=== PATIENT | female | born 1995 | race Caucasian/White ===

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

== ENCOUNTER 2019-02-16 17:56 | Emergency (ER) | payer OTHER ==
[2019-02-16 18:25] VITALS: BP 122/65
--- NOTE | 2019-02-16 18:36 | EDM.PDOC ---
ED HPI GENERAL MEDICAL PROBLEM - General Stated Complaint: UTI Time Seen by Provider: 02/16/19 18:18 Source of Information: Reports: Patient History Limitations: Reports: No Limitations - History of Present Illness INITIAL COMMENTS - FREE TEXT/NARRATIVE: 23-year-old female with onset of urgency, frequency and dysuria at approximately 5 PM today. She had no symptoms prior to this. Some mild suprapubic discomfort there is no back or flank pain. She's had no fevers or chills. There's been no nausea or vomiting. She has been able to eat and drink normally. She has noticed no blood in her urine. She rates pain as a 5/10. It is a burning and stinging pain that occurs after urination. The pain in her suprapubic area is more of a pressure type feeling. There are no other associated signs or symptoms. There are no other modifying factors. Onset: Today (5 PM) Duration: Constant Location: Reports: Abdomen (Mild suprapubic discomfort), Other (/urethra) Quality: Reports: Pressure (And suprapubic area), Other (Burning with urination) Severity: Moderate Improves with: Reports: None Worsens with: Reports: Other (With urination) Context: Reports: Other (As above) Associated Symptoms: Reports: No Other Symptoms Treatments [employer]: Reports: Other (see below) (Nothing) Abdominal Pain Score (Numeric/FACES): 4 - Related Data Allergies Allergy/AdvReac Type Severity Reaction Status Date / Time No Known Allergies Allergy Verified 10/11/16 02:05 Home Meds: Home Meds ALPRAZolam [Alprazolam] 0.25 mg PO Q4HR PRN 10/11/16 [History] Sertraline HCl 200 mg PO DAILY 10/11/16 [History] busPIRone [Buspar] 100 mg PO TID 10/11/16 [History] Phenazopyridine HCl [Pyridium] 200 mg PO TID PRN #9 tablet 02/16/19 [Rx] Prazosin [Minpress] 1 mg PO BEDTIME 02/16/19 [History] Sulfamethoxazole/Trimethoprim [Bactrim Ds Tablet] 1 each PO BID 7 Days #14 tablet 02/16/19 [Rx] Past Medical History Psychiatric History: Reports: Anxiety, Depression - Past Surgical History Musculoskeletal Surgical History: Reports: ORIF (Of right ankle with 2 surgeries.) Social & Family History - Tobacco Use Smoking Status *Q: Current Every Day Smoker - Caffeine Use Caffeine Use: Reports: None - Alcohol Use Alcohol Use History: Yes Alcohol Use Frequency: Socially - Living Situation & Occupation 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) ED ROS GENERAL - Review of Systems Review Of Systems: See Below Constitutional: Reports: No Symptoms HEENT: Reports: No Symptoms Respiratory: Reports: No Symptoms Cardiovascular: Reports: No Symptoms Endocrine: Reports: No Symptoms GI/Abdominal: Reports: Abdominal Pain (Mild suprapubic discomfort) : Reports: Dysuria, Urgency Musculoskeletal: Reports: No Symptoms Skin: Reports: No Symptoms Neurological: Reports: No Symptoms Hematologic/Lymphatic: Reports: No Symptoms Immunologic: Reports: No Symptoms ED EXAM, RENAL/ - Physical Exam Exam: See Below Exam Limited By: No Limitations General Appearance: Alert, WD/WN, No Apparent Distress Eye Exam: Bilateral Eye: EOMI, Normal Inspection Ears: Normal External Exam Nose: Normal Inspection, Normal Mucosa Throat/Mouth: Normal Inspection, Normal Oropharynx, Normal Voice, No Airway Compromise Head: Atraumatic, Normocephalic Neck: Normal Inspection, Supple, Non-Tender, Full Range of Motion Respiratory/Chest: No Respiratory Distress, Lungs Clear, Normal Breath Sounds, No Accessory Muscle Use, Chest Non-Tender Cardiovascular: Normal Peripheral Pulses, Regular Rate, Rhythm, No JVD GI/Abdominal: Normal Bowel Sounds, Soft, No Mass, Tender (Mildly tender in suprapubic area) Back Exam: Normal Inspection. No: CVA Tenderness (R), CVA Tenderness (L) Extremities: Normal Inspection, Normal Range of Motion, Non-Tender, Normal Capillary Refill, No Pedal Edema Neurological: Alert, Oriented, CN II-XII Intact, Normal Cognition, No Motor/ Sensory Deficits Psychiatric: Normal Affect Skin Exam: Warm, Dry, Intact, Normal Color, No Rash Lymphatic: No Adenopathy Course - Vital Signs Last Recorded V/S: Last Vital Signs Temp 37.1 C 02/16/19 18:10 Pulse 65 02/16/19 18:10 Resp 18 02/16/19 18:10 BP 122/65 02/16/19 18:10 Pulse Ox 98 02/16/19 18:10 - Orders/Labs/Meds Orders: Active Orders 24 hr Category Date Time Status CULTURE URINE [RM] Stat Lab 02/16/19 18:26 Ordered Labs: Laboratory Tests 02/16/19 02/16/19 Range/Units 18:05 18:05 Urine Color Yellow (YELLOW) Urine Appearance Cloudy (CLEAR) Urine pH 8.0 H (5.0-6.5) Ur Specific [place] 1.010 (1.010-1.025) Urine Protein Negative (NEGATIVE) mg/dL Urine Glucose (UA) Normal (NORMAL) mg/dL Urine Ketones Negative (NEGATIVE) mg/dL Urine Occult Blood Large H (NEGATIVE) Urine Nitrite Negative (NEGATIVE) Urine Bilirubin Negative (NEGATIVE) Urine Urobilinogen Normal (NEGATIVE) mg/dL Ur Leukocyte Esterase Large H (NEGATIVE) Urine RBC 5-10 H (0-5) Urine WBC 75-100 H (0-5) Ur Squamous Epith Cells Moderate H (NS,R,O) Urine Bacteria Moderate H (NS) Urine HCG, Qual Negative (NEGATIVE) - Re-Assessments/Exams Free Text/Narrative Re-Assessment/Exam: 02/16/19 18:38: Patient with urinary tract infection. Urine was sent for culture. test was negative. The patient will be placed on Bactrim DS 1 by mouth twice a day for 7 days and Pyridium 200 mg by mouth 3 times a day when necessary area Departure - Departure Time of Disposition: 18:45 Disposition: Home, Self-Care 01 Condition: Good Clinical Impression: UTI (urinary tract infection) Qualifiers: Urinary tract infection type: site unspecified Hematuria presence: without hematuria Qualified Code(s): N39.0 - Urinary tract infection, site not specified - Discharge Information Prescriptions: Phenazopyridine HCl [Pyridium] 200 mg PO TID PRN #9 tablet PRN Reason: Urinary discomfort Sulfamethoxazole/Trimethoprim [Bactrim Ds Tablet] 1 each PO BID 7 Days #14 tablet Instructions: Urinary Tract Infection, Adult, [id number] Referrals: Crystal Purcell NP [Primary Care Provider] - Additional Instructions: You have a urinary tract infection. Increase your fluid intake. Rest. Medication as prescribed (Bactrim DS, Pyridium 200 mg). Follow-up with your primary doctor as needed. Back to the emergency department for unrelenting vomiting, high fever, worsening abdominal, back or flank pain or any other concerning sign or symptom. - My Orders Last 24 Hours: My Active Orders 02/16/19 18:26 CULTURE URINE [RM] Stat - Assessment/Plan Last 24 Hours: My Active Orders 02/16/19 18:26 CULTURE URINE [RM] Stat
[2019-02-16] MEDS ORDERED: Sulfamethoxazole/Trimethoprim 800-160 MG Tab PO ONE (18:43)
[2019-02-16] MEDS ORDERED: Phenazopyridine 95 MG Tab PO ONE (18:44)
== END 2019-02-16 19:04 | disposition home or self-care (01) ==
LOC: FB.ED 17:56
DX: N39.0 Urinary tract infection, site not specified (principal); F41.9 Anxiety disorder, unspecified; F32.9 Major depressive disorder, single episode, unspecified; F17.200 Nicotine dependence, unspecified, uncomplicated; Z79.899 Other long term (current) drug therapy
CPT/HCPCS: 81001; 81025; 87086; 87088; 87186; 99284; A9270

== ENCOUNTER 2020-05-12 20:34 | Emergency (ER) | payer OTHER ==
[2020-05-12] MEDS ORDERED: Ketorolac 60 MG/2 ML SDV IM STA (21:58)
--- NOTE | 2020-05-12 22:03 | EDM.PDOC ---
ED HPI GENERAL MEDICAL PROBLEM - General Stated Complaint: KNEE Time Seen by Provider: 05/12/20 20:40 Source of Information: Reports: Patient History Limitations: Reports: No Limitations - History of Present Illness INITIAL COMMENTS - FREE TEXT/NARRATIVE: Patient presented to the ED because of a chronic left knee pain. The pain is sharp,10/10, worse with movement. She took Ibuprofen and tylenol without any relief. She saw an orthopedic surgeon and was diagnosed with torn meniscus. 0 Pain Score (Numeric/FACES): 10 - Related Data Allergies Allergy/AdvReac Type Severity Reaction Status Date / Time No Known Allergies Allergy Verified 10/11/16 02:05 Home Meds: Home Meds ALPRAZolam [Alprazolam] 0.25 mg PO Q4HR PRN 10/11/16 [History] Sertraline HCl 200 mg PO DAILY 10/11/16 [History] busPIRone [Buspar] 100 mg PO TID 10/11/16 [History] Phenazopyridine HCl [Pyridium] 200 mg PO TID PRN #9 tablet 02/16/19 [Rx] Prazosin [Minpress] 1 mg PO BEDTIME 02/16/19 [History] Sulfamethoxazole/Trimethoprim [Bactrim Ds Tablet] 1 each PO BID 7 Days #14 tablet 02/16/19 [Rx] Ketorolac [Toradol] 10 mg PO Q8H PRN #15 tab 05/12/20 [Rx] Past Medical History Psychiatric History: Reports: Anxiety, Depression - Past Surgical History Musculoskeletal Surgical History: Reports: ORIF (Of right ankle with 2 surgeries.) Social & Family History - Family History Family Medical History: Noncontributory - Caffeine Use Caffeine Use: Reports: Soda - Living Situation & Occupation 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) ED ROS GENERAL - Review of Systems Review Of Systems: See Below Constitutional: Reports: No Symptoms HEENT: Reports: No Symptoms Respiratory: Reports: No Symptoms Cardiovascular: Reports: No Symptoms Endocrine: Reports: No Symptoms GI/Abdominal: Reports: No Symptoms : Reports: No Symptoms Musculoskeletal: Reports: Other (left lnee pain) Skin: Reports: No Symptoms Neurological: Reports: No Symptoms Psychiatric: Reports: No Symptoms Hematologic/Lymphatic: Reports: No Symptoms ED EXAM, GENERAL - Physical Exam Exam: See Below Exam Limited By: No Limitations General Appearance: Alert, No Apparent Distress Eye Exam: Bilateral Eye: PERRL Ears: Normal External Exam, Normal Canal, Hearing Grossly Normal Nose: Normal Inspection, Normal Mucosa, No Blood Throat/Mouth: Normal Inspection, Normal Lips, Normal Teeth Head: Atraumatic, Normocephalic Neck: Normal Inspection, Supple, Non-Tender, Full Range of Motion Respiratory/Chest: No Respiratory Distress, Lungs Clear, Normal Breath Sounds, No Accessory Muscle Use Cardiovascular: Normal Peripheral Pulses, Regular Rate, Rhythm, No Edema, No Gal lop, No JVD, No Murmur, No Rub GI/Abdominal: Normal Bowel Sounds, Soft, Non-Tender, No Organomegaly Back Exam: Normal Inspection, Full Range of Motion Extremities: Normal Inspection, Normal Range of Motion, Other (tendernes over the medial and lateral aspect of the left knee) Course - Vital Signs Text/Narrative:: toradol 60 mg IM x1 Last Recorded V/S: Last Vital Signs Temp 36.4 C 05/12/20 22:00 Pulse 95 05/12/20 22:00 Resp 17 05/12/20 22:00 BP 139/73 05/12/20 22:00 Pulse Ox 99 05/12/20 22:00 - Orders/Labs/Meds Meds: Medications Discontinued Medications Generic Name Dose Route Start Last Admin Trade Name Freq PRN Reason Stop Dose Admin Ketorolac Tromethamine 60 mg 05/12/20 21:58 05/12/20 22:10 Toradol IM 05/12/20 21:59 60 mg NOW STA Administration Departure - Departure Time of Disposition: 20:00 Disposition: Home, Self-Care 01 Condition: Good Clinical Impression: Chronic knee pain - Discharge Information Prescriptions: Ketorolac [Toradol] 10 mg PO Q8H PRN #15 tab PRN Reason: Pain Instructions: Chronic Knee Pain, Adult Referrals: Daisy Pacheco PA-C [Primary Care Provider] - Forms: ED Department Discharge Additional Instructions: Please tread discharge instructions on chronic knee pain Take toradol 10 mg with tylenol 1000 mg every 8 hours as needed for pain Do not take Ibuprofen when you are taking the toradol Follow up as needed Sepsis Event Note (ED) - Focused Exam Vital Signs: Vital Signs Temp Pulse Resp BP Pulse Ox 05/12/20 22:00 36.4 C 95 17 139/73 99 05/12/20 20:34 36.6 C 120 H 18 139/82 98
[2020-05-13 05:13] VITALS: BP 139/73; PULSE 95
== END 2020-05-12 22:17 | disposition home or self-care (01) ==
LOC: FB.ED 20:34
DX: G89.29 Other chronic pain (principal); M25.562 Pain in left knee; F41.9 Anxiety disorder, unspecified; F32.9 Major depressive disorder, single episode, unspecified; Z79.899 Other long term (current) drug therapy
CPT/HCPCS: 96372; 99283; J1885

== ENCOUNTER 2020-10-31 10:55 | Emergency (ER) | payer OTHER ==
[2020-10-31] MEDS ORDERED: Dexmedetomidine 200 MCG/2 ML SDV IV ONE (10:56)
[2020-10-31] MEDS ORDERED: fentaNYL 100 MCG/2 ML SDV IV ONE (10:56)
[2020-10-31] MEDS ORDERED: Ketorolac 30 MG/ML SDV IVPUSH ONE (10:56)
[2020-10-31] MEDS ORDERED: Propofol 200 MG/20 ML SDV IV ONE (10:56)
[2020-10-31] MEDS ORDERED: Sodium Chloride 0.9% 500 ML IV ONE (10:56)
[2020-10-31] MEDS ORDERED: Midazolam 1 MG/ML 2 ML SDV IV ONE (10:56)
[2020-10-31] MEDS ORDERED: Acetaminophen/HYDROcodone 325-5 MG Tab PO ONE (10:56)
[2020-10-31] MEDS ORDERED: Ketamine 500 mg/10 ML MDV IV ONE (10:56)
[2020-10-31] MEDS ORDERED: Sodium Chloride 0.9% 1,000 ML IV ONE (11:19)
[2020-10-31] MEDS ORDERED: metroNIDAZOLE/Normal Saline 500 MG in Premix Bag 1 BAG IV ONE (11:20)
[2020-10-31] MEDS ORDERED: Morphine 4 MG/ML VIAL IVPUSH ONE (11:20)
[2020-10-31] MEDS ORDERED: cefTRIAXone 1 GM in Sodium Chloride 0.9% 50 ML IV ONE (11:20)
[2020-10-31] MEDS ORDERED: Iopamidol 755 Mg/ML 100 ML Bottle IV ONE (11:28)
--- NOTE | 2020-10-31 11:30 | EDM.PDOC ---
ED HPI GENERAL MEDICAL PROBLEM - General Chief Complaint: Skin Complaint Stated Complaint: CYST ON COCCYX/YELLOWING SKIN Time Seen by Provider: 10/31/20 11:00 Source of Information: Reports: Patient History Limitations: Reports: No Limitations - History of Present Illness INITIAL COMMENTS - FREE TEXT/NARRATIVE: c/o pain in buttocks inc'd today pt saw Dr Hurtado 5d ago who drained an abscess from her left buttocks, no packing, saw him in f/u 3d ago, on Augmentin no pain is worse, barely able to tolerate anyone touching her buttocks, went to urgent care who sent her here h/o pilonidal cyst tx'ed in past that was surgically excised, h/o spinal stimulator no prior h/o perirectal abscess coccyx Pain Score (Numeric/FACES): 8 - Related Data Allergies Allergy/AdvReac Type Severity Reaction Status Date / Time Bleach (Sodium Hypochlorite) Allergy Rash Verified 10/31/20 11:20 raspberry Allergy Itching Verified 10/31/20 11:20 Home Meds: Home Meds Sertraline HCl 200 mg PO DAILY 10/11/16 [History] busPIRone [Buspar] 100 mg PO TID 10/11/16 [History] Celecoxib [CeleBREX] 200 mg PO BID 10/31/20 [History] Ciprofloxacin HCl [Cipro] 500 mg PO BID #20 tablet 10/31/20 [Rx] Gabapentin [Neurontin] 300 mg PO BID 10/31/20 [History] Hydrocodone/Acetaminophen [Hydrocodon-Acetaminophen 5-325] 1 - 2 tab PO Q4HR PRN #20 tablet 10/31/20 [Rx] Past Medical History Psychiatric History: Reports: Anxiety, Depression - Past Surgical History Musculoskeletal Surgical History: Reports: ORIF (Of right ankle with 2 surgeries.) Social & Family History - Family History Family Medical History: No Pertinent Family History - Caffeine Use Caffeine Use: Reports: Soda - Living Situation & Occupation 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) ED ROS GENERAL - Review of Systems Review Of Systems: See Below Constitutional: Reports: Fever HEENT: Reports: No Symptoms Respiratory: Reports: No Symptoms Cardiovascular: Reports: No Symptoms Endocrine: Reports: No Symptoms GI/Abdominal: Reports: No Symptoms : Reports: Pain, Other (swell at buttocks) Musculoskeletal: Reports: No Symptoms Skin: Reports: No Symptoms Neurological: Reports: No Symptoms Psychiatric: Reports: No Symptoms Hematologic/Lymphatic: Reports: No Symptoms Immunologic: Reports: No Symptoms ED EXAM, SKIN/RASH Exam: See Below Exam Limited By: No Limitations General Appearance: Alert, WD/WN, No Apparent Distress Ears: Hearing Grossly Normal Nose: Normal Inspection Throat/Mouth: Normal Voice, No Airway Compromise Head: Atraumatic, Normocephalic Neck: Normal Inspection, Supple, Non-Tender, Full Range of Motion Respiratory/Chest: No Respiratory Distress, Lungs Clear Cardiovascular: Regular Rate, Rhythm GI/Abdominal: Soft, Non-Tender Rectal (Female) Exam: Other (there is red and swell and induration of the opposing buttocks posterior to anus, no d/c, no break in skin, warm, quite tender, inc'd induration on R of ~15 x 15 cm, induration on L ~8 x 8 cm, old pilonidal cyst scar is more cephalad, there are 2 other scars from a spinal stimulator (mid line at l-spine, and horizontal over L buttocks in mid- clavicular line)) Back Exam: Normal Inspection, Full Range of Motion. No: CVA Tenderness (R), CVA Tenderness (L) Course - Vital Signs Last Recorded V/S: Last Vital Signs Temp 36.8 C 10/31/20 15:19 Pulse 76 10/31/20 16:00 Resp 16 10/31/20 16:00 BP 102/54 L 10/31/20 16:00 Pulse Ox 98 10/31/20 16:00 - Orders/Labs/Meds Orders: Active Orders 24 hr Category Date Time Status Abdomen Pelvis w Cont [CT] Stat Exams 10/31/20 11:22 Taken CULTURE BLOOD [BC] Urgent Lab 10/31/20 11:40 Received CULTURE BLOOD [BC] Urgent Lab 10/31/20 11:45 Received Blood Culture x2 Reflex Set [OM.PC] Urgent Oth 10/31/20 11:19 Ordered Labs: Laboratory Tests 10/31/20 10/31/20 10/31/20 Range/Units 11:40 11:40 11:40 WBC 13.5 H (3.0-10.3) x10-3/uL RBC 4.24 (3.60-5.20) x10(6)uL Hgb 11.7 (11.4-15.5) g/dL Hct 36.7 (34.2-48.2) % MCV 86.5 (76.7-100.5) fL MCH 27.7 (23.9-33.9) pg MCHC 32.0 (31.9-34.8) g/dL RDW 13.1 (12.3-16.5) % Plt Count 335 (151-488) x10(3)uL MPV 8.0 (7.1-12.4) fL Neut % (Auto) 79.2 H (30.8-76.2) % Lymph % (Auto) 9.7 L (18.4-52.1) % Gem % (Auto) 8.6 (4.4-15.7) % Eos % (Auto) 2.1 (0.6-8.1) % Baso % (Auto) 0.4 (0.2-1.5) % Neut # (Auto) 10.7 H (1.5-6.3) x10-3/uL Lymph # (Auto) 1.3 (1.0-4.4) x10-3/uL Gem # (Auto) 1.2 H (0.3-1.0) x10-3/uL Eos # (Auto) 0.3 (0.0-0.8) x10-3/uL Baso # (Auto) 0.1 (0.0-0.1) x10-3/uL Sodium 142 (135-145) mmol/L Potassium 4.2 (3.5-5.3) mmol/L Chloride 105 (100-110) mmol/L Carbon Dioxide 24 (21-32) mmol/L BUN 7 (7-18) mg/dL Creatinine 0.8 (0.55-1.02) mg/dL Est Cr Clr Drug Dosing 102.39 mL/min Estimated GFR (MDRD) > 60 (>60) BUN/Creatinine Ratio 8.8 L (9-20) Glucose 90 (80-116) mg/dL Lactic Acid 0.4 (0.4-2.0) mmol/L Calcium 8.7 (8.6-10.2) mg/dL Total Bilirubin 0.3 (0.1-1.3) mg/dL AST 16 (5-25) IU/L ALT 25 (12-36) U/L Alkaline Phosphatase 58 (56-112) IU/L Total Protein 7.5 (6.0-8.0) g/dL Albumin 3.1 L (3.5-5.2) g/dL Globulin 4.4 g/dL Albumin/Globulin Ratio 0.7 Urine Color (YELLOW) Urine Appearance (CLEAR) Urine pH (5.0-6.5) Ur Specific Buena (1.010-1.025) Urine Protein (NEGATIVE) mg/dL Urine Glucose (UA) (NORMAL) mg/dL Urine Ketones (NEGATIVE) mg/dL Urine Occult Blood (NEGATIVE) Urine Nitrite (NEGATIVE) Urine Bilirubin (NEGATIVE) Urine Urobilinogen (NEGATIVE) mg/dL Ur Leukocyte Esterase (NEGATIVE) Urine WBC (0-5) Ur Squamous Epith Cells (NS,R,O) Urine Bacteria (NS) Urine HCG, Qual (NEGATIVE) 10/31/20 10/31/20 Range/Units 12:15 12:15 WBC (3.0-10.3) x10-3/uL RBC (3.60-5.20) x10(6)uL Hgb (11.4-15.5) g/dL Hct (34.2-48.2) % MCV (76.7-100.5) fL MCH (23.9-33.9) pg MCHC (31.9-34.8) g/dL RDW (12.3-16.5) % Plt Count (151-488) x10(3)uL MPV (7.1-12.4) fL Neut % (Auto) (30.8-76.2) % Lymph % (Auto) (18.4-52.1) % Gem % (Auto) (4.4-15.7) % Eos % (Auto) (0.6-8.1) % Baso % (Auto) (0.2-1.5) % Neut # (Auto) (1.5-6.3) x10-3/uL Lymph # (Auto) (1.0-4.4) x10-3/uL Gem # (Auto) (0.3-1.0) x10-3/uL Eos # (Auto) (0.0-0.8) x10-3/uL Baso # (Auto) (0.0-0.1) x10-3/uL Sodium (135-145) mmol/L Potassium (3.5-5.3) mmol/L Chloride (100-110) mmol/L Carbon Dioxide (21-32) mmol/L BUN (7-18) mg/dL Creatinine (0.55-1.02) mg/dL Est Cr Clr Drug Dosing mL/min Estimated GFR (MDRD) (>60) BUN/Creatinine Ratio (9-20) Glucose (80-116) mg/dL Lactic Acid (0.4-2.0) mmol/L Calcium (8.6-10.2) mg/dL Total Bilirubin (0.1-1.3) mg/dL AST (5-25) IU/L ALT (12-36) U/L Alkaline Phosphatase (56-112) IU/L Total Protein (6.0-8.0) g/dL Albumin (3.5-5.2) g/dL Globulin g/dL Albumin/Globulin Ratio Urine Color Yellow (YELLOW) Urine Appearance Slightly cloudy (CLEAR) Urine pH 7.0 H (5.0-6.5) Ur Specific Buena 1.010 (1.010-1.025) Urine Protein Negative (NEGATIVE) mg/dL Urine Glucose (UA) Normal (NORMAL) mg/dL Urine Ketones Negative (NEGATIVE) mg/dL Urine Occult Blood Negative (NEGATIVE) Urine Nitrite Negative (NEGATIVE) Urine Bilirubin Negative (NEGATIVE) Urine Urobilinogen Normal (NEGATIVE) mg/dL Ur Leukocyte Esterase Negative (NEGATIVE) Urine WBC 0-5 (0-5) Ur Squamous Epith Cells Few H (NS,R,O) Urine Bacteria Few H (NS) Urine HCG, Qual Negative (NEGATIVE) Meds: Medications Discontinued Medications Generic Name Dose Route Start Last Admin Trade Name Freq PRN Reason Stop Dose Admin Bupivacaine HCl 10 ml 10/31/20 14:57 10/31/20 14:57 Marcaine 0.5% INJECT 10/31/20 14:58 10 ml .STK-MED ONE Administration Ceftriaxone Sodium 1 gm/ 50 mls @ 200 mls/hr 10/31/20 11:20 10/31/20 11:56 Sodium Chloride IV 10/31/20 11:34 200 mls/hr ONETIME ONE Administration Metronidazole 500 mg/ Premix 100 mls @ 100 mls/hr 10/31/20 11:20 10/31/20 11:56 IV 10/31/20 12:19 100 mls/hr ONETIME ONE Administration Sodium Chloride 1,000 mls @ 999 mls/hr 10/31/20 11:19 10/31/20 11:40 Normal Saline IV 10/31/20 12:19 999 mls/hr .BOLUS ONE Administration Iopamidol 100 ml 10/31/20 11:28 10/31/20 11:30 Isovue-370 (76%) IV 10/31/20 11:29 100 ml . DIRECTED ONE Administration Lidocaine/Epinephrine 10 ml 10/31/20 14:57 10/31/20 14:57 Xylocaine 1% With Epinephrine 1:100,000 INJECT 10/31/20 14:58 10 ml .STK-MED ONE Administration Morphine Sulfate 4 mg 10/31/20 11:20 10/31/20 11:46 Morphine IVPUSH 10/31/20 11:21 4 mg ONETIME ONE Administration - Re-Assessments/Exams Free Text/Narrative Re-Assessment/Exam: 10/31/20 13:05 CT report back, d/w Dr Mak who said he would come in to see pt there is likely a fistula to the anus/rectum altho CT had subtle indications of the same 3 cm abscess was deeper in the midline adjacent to the coccyx with extension both R/L to the skin of the buttocks pt reports that no culture done by Dr Hurtado 5d ago, call to lab shows no prior culture than UC 1.5y ago of E coli sensitive to all except indeterminate to Zosyn (hence use of ceftriaxone and Flagyl) 10/31/20 17:14 surgical drainage completed in OR, drain placed, pt d/c'ed from postop a few minutes ago, alert, doing well, feeling better pt transferred to surgery and OR after 13:00, then d/c home by Dr Mak Departure - Departure Time of Disposition: 13:00 Disposition: Still A Patient 30 Preliminary Cause of *Q: Cardiac Arrest Condition: Good Clinical Impression: Perirectal abscess - Discharge Information *PRESCRIPTION DRUG MONITORING PROGRAM REVIEWED*: Not Applicable *COPY OF PRESCRIPTION DRUG MONITORING REPORT IN PATIENT ONEL: Not Applicable Prescriptions: Ciprofloxacin HCl [Cipro] 500 mg PO BID #20 tablet Hydrocodone/Acetaminophen [Hydrocodon-Acetaminophen 5-325] 1 - 2 tab PO Q4HR PRN #20 tablet PRN Reason: Pain Referrals: Daisy Pacheco PA-C [Primary Care Provider] - Darnell Mak MD [Physician] - (in 3 days) Forms: ED Department Discharge Sepsis Event Note (ED) - Focused Exam Vital Signs: Vital Signs Temp Pulse Resp BP Pulse Ox 10/31/20 16:00 76 16 102/54 L 98 10/31/20 15:45 75 16 108/58 L 100 10/31/20 15:30 78 16 104/56 L 96 10/31/20 15:19 36.8 C 79 16 102/54 L 96 10/31/20 13:15 90 16 100/61 100 10/31/20 11:00 37.1 C 116 H 18 135/74 96 - My Orders Last 24 Hours: My Active Orders 10/31/20 11:19 Blood Culture x2 Reflex Set [OM.PC] Urgent 10/31/20 11:22 Abdomen Pelvis w Cont [CT] Stat 10/31/20 11:40 CULTURE BLOOD [BC] Urgent 10/31/20 11:45 CULTURE BLOOD [BC] Urgent - Assessment/Plan Last 24 Hours: My Active Orders 10/31/20 11:19 Blood Culture x2 Reflex Set [OM.PC] Urgent 10/31/20 11:22 Abdomen Pelvis w Cont [CT] Stat 10/31/20 11:40 CULTURE BLOOD [BC] Urgent 10/31/20 11:45 CULTURE BLOOD [BC] Urgent
--- NOTE | 2020-10-31 14:46 | HP ---
ADMISSION DATE: 10/31/2020 HISTORY OF PRESENT ILLNESS: This 25-year-old female presented to the emergency room today with increasing pain in the perirectal/gluteal cleft area. This patient first noticed discomfort in this area 9 days ago. This gradually worsened until she presented to the outpatient clinic 5 days ago, at which time she was felt to have an abscess and incision and drainage was performed in the clinic under local anesthesia with a drainage of some "unusually colored fluid." The patient has been on oral antibiotics, but despite that, her pain has continued and worsened to the point that she came to the emergency room today. She was seen twice postprocedure last week, but no additional drainage was performed at those visits. The patient was noted to have pain, redness, and induration in the midline of the gluteal area posterior to the anus. A CT scan was obtained, which was interpreted as identifying an approximately 3-cm abscess in the midline posterior to the anus near the coccyx, but the coccyx otherwise appeared normal. PAST MEDICAL HISTORY: Significant for pilonidal cystectomy several months ago, which she healed up well from. She has also had ankle surgery and has a nerve stimulator for her left knee in place because of knee pain. She does carry diagnoses of anxiety and depression. MEDICATIONS: 1. Sertraline. 2. BuSpar. 3. Celebrex. 4. Neurontin. 5. She has been on Augmentin for this abscess. ALLERGIES: She has no known drug allergies. FAMILY HISTORY: Noncontributory. SYSTEM REVIEW: Reveals no symptoms of cough, sore throat, unexplained fever, or loss of taste or smell. She is not experiencing any chest pain or palpitations. Appetite has been good, and although with the pain, it has been decreased recently. She does have pain in the left knee on a chronic basis. There has been some help with the nerve stimulator. PHYSICAL EXAMINATION: VITAL SIGNS: Admitting pulse 116, currently pulse is 90, blood pressure is 135/74, and respirations 18. GENERAL: The patient is an alert, adult female. She is in no acute distress, although notes pain with movement. HEENT: Head is normocephalic. No scleral icterus. HEART: Regular without murmur. LUNGS: Clear. ABDOMEN: Soft. Nontender. RECTAL: Perirectal examination reveals induration and erythema along with marked tenderness in the gluteal cleft area near the anus. The anus itself does not appear to be involved. There is some erythema and induration extending into the medial aspect of both buttocks. No crepitus or drainage is noted. DIAGNOSTIC DATA: Serum white blood cell count elevated at 13,500. Liver function tests unremarkable. Urinalysis unremarkable. IMPRESSION: Perirectal/gluteal cleft abscess, worsening despite prior incision and drainage. RECOMMENDATIONS: Advised the patient go to the operating room where under anesthesia, a good evaluation of the area can be carried out and complete drainage of the abscess performed. I discussed this postoperative procedure with the patient, reviewed with her the indications, options, and risks and expectations, and she agrees to have this performed. /[id number] GUSTAVO/OSEAS
[2020-10-31] MEDS ORDERED: Bupivacaine 0.5% 30 ML SDV INJECT ONE (14:57)
[2020-10-31] MEDS ORDERED: Lidocaine 1% with EPINEPHrine 1:100,000 20 ML MDV INJECT ONE (14:57)
--- NOTE | 2020-10-31 15:20 | PCM.OPNOTE ---
- General Post-Op/Procedure Note Date of Surgery/Procedure: 10/31/20 Operative Procedure(s): Drainage of Gluteal Abscess Findings: Abscess in midline of lower gluteal cleft Pre Op Diagnosis: Gluteal Abscess Post-Op Diagnosis: Same Anesthesia Technique: Local, MAC Primary Surgeon: Darnell Mak Pathology: Culture of abscess EBL in mLs: 10 Surgical Drain/Tube Type: [place] Complications: None Condition: Good
--- NOTE | 2020-10-31 15:45 | OR ---
DATE OF OPERATION: 10/31/2020 SURGEON: Darnell Mak MD PREOPERATIVE DIAGNOSIS: Gluteal abscess. POSTOPERATIVE DIAGNOSIS: Gluteal abscess. OPERATION PERFORMED: Incision and drainage of gluteal abscess. INDICATIONS FOR SURGERY: This 25-year-old female has developed an abscess in the lower part of her gluteal cleft. She had a previous incision and drainage, but pain and swelling are worsening, and CT scan indicates additional abscess present. FINDINGS: In the midline in the lower part of her gluteal cleft, there is an area of induration and erythema. Just deep to this is an abscess approximately 5 cm in size. There is some necrotic granulation tissue in the wall of the abscess, but no other indication of tunneling or additional abscess is noted. DESCRIPTION OF PROCEDURE: The patient was taken to the operating room. She was given intravenous sedation and placed in the prone position on the operating table. The area of concern was clearly identified, prepped and draped. Local infiltration of Xylocaine with Marcaine was then instilled and once good analgesia had been achieved, a linear incision was made just to the right of the midline adjacent to the lower aspect of the gluteal cleft. Just beneath the skin, the abscess cavity was entered. Cultures of the fluid were taken and the abscess was completely drained. A small ellipse of skin was also taken at the incision and drainage site to assure that this area could completely drain. Curetting of the abscess cavity was also carried out and careful probing with instruments and digitally was performed to be sure that there was no retained abscess present. A Felipe drain was then left exiting through the incision, secured to the skin with silk suture. A sterile dressing was placed. The patient was then taken from the operating room in satisfactory condition. ESTIMATED BLOOD LOSS: 10 mL. COMPLICATIONS: None. PROGNOSIS: Good. /[id number] GUSTAVO/OSEAS
[2020-10-31 16:28] VITALS: BP 102/54; PULSE 76
== END 2020-10-31 16:30 | disposition still patient (30) ==
LOC: FB.ED 10:55
DX: K61.1 Rectal abscess (principal); Z91.048 Other nonmedicinal substance allergy status; Z91.018 Allergy to other foods; Z79.899 Other long term (current) drug therapy
CPT/HCPCS: 00902; 10061; 36415; 74177; 80053; 81001; 81025; 82274; 83605; 85025; 87040; 87070; 87075; 87077; 87186; 87205; 96365; 96367; 96375; 99283; 99284; A9270; J0696; J1885; J2250; J2270; J2704; J3010; J3490; J7030; J7040; Q9967; 10060

== ENCOUNTER 2021-01-29 22:45 | Emergency (ER) | payer OTHER ==
--- NOTE | 2021-01-29 23:37 | EDM.PDOC ---
ED HPI GENERAL MEDICAL PROBLEM - General Stated Complaint: DIFFICULTY BREATHING Time Seen by Provider: 01/29/21 23:00 Source of Information: Reports: Patient History Limitations: Reports: No Limitations - History of Present Illness INITIAL COMMENTS - FREE TEXT/NARRATIVE: c/o cough pt lives alone, not working currently,has had several abscesses on buttock including one which Dr Mills drained in ED 3m ago, has had 3-4 drainages of pilonidal cyst says she still has a swollen area at R labia that was not lanced, examined with LINO Zarate in room and there was dryness to the skin of the labia majora b/l but no subc nodule or tenderness 3w ago Tiarra Purcell began her on doxy 100 mg bid x 3m for her recurrent skin abscesses pt denies h/o MRSA however pt developed a cough after 2nd Pfizer COVID vax 1w ago, never had COVID, pt saw Tiarra 5d ago and doxy stopped and pt begun on Z-niles, amox/clav and prednisone, also given alb HFA for wheezing pt states she still has been coughing and that change in meds did not help, no sputum, no f/c/d, insists she never had COVID says her baseline WBC is 11k pt states she has "all of the COVID sxs" since getting the COVID vax - Related Data Allergies Allergy/AdvReac Type Severity Reaction Status Date / Time Bleach (Sodium Hypochlorite) Allergy Rash Verified 10/31/20 11:20 raspberry Allergy Itching Verified 10/31/20 11:20 Home Meds: Home Meds Sertraline HCl 200 mg PO DAILY 10/11/16 [History] busPIRone [Buspar] 100 mg PO TID 10/11/16 [History] Celecoxib [CeleBREX] 200 mg PO BID 10/31/20 [History] Ciprofloxacin HCl [Cipro] 500 mg PO BID #20 tablet 10/31/20 [Rx] Gabapentin [Neurontin] 300 mg PO BID 10/31/20 [History] Hydrocodone/Acetaminophen [Hydrocodon-Acetaminophen 5-325] 1 - 2 tab PO Q4HR PRN #20 tablet 10/31/20 [Rx] Benzonatate 200 mg PO TID #15 capsule 01/30/21 [Rx] Past Medical History Psychiatric History: Reports: Anxiety, Depression - Past Surgical History Musculoskeletal Surgical History: Reports: ORIF (Of right ankle with 2 surgeries.) Social & Family History - Family History Family Medical History: No Pertinent Family History - Caffeine Use Caffeine Use: Reports: None - Living Situation & Occupation 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) ED ROS GENERAL - Review of Systems Review Of Systems: See Below Constitutional: Reports: No Symptoms HEENT: Reports: No Symptoms Respiratory: Reports: No Symptoms Cardiovascular: Reports: No Symptoms Endocrine: Reports: No Symptoms GI/Abdominal: Reports: No Symptoms : Reports: No Symptoms Musculoskeletal: Reports: No Symptoms Skin: Reports: No Symptoms Neurological: Reports: No Symptoms Psychiatric: Reports: No Symptoms Hematologic/Lymphatic: Reports: No Symptoms Immunologic: Reports: No Symptoms ED EXAM, SKIN/RASH Exam: See Below Exam Limited By: No Limitations General Appearance: Alert, WD/WN Ears: Hearing Grossly Normal Nose: Normal Inspection Throat/Mouth: Normal Inspection, Normal Voice, No Airway Compromise Head: Atraumatic, Normocephalic Neck: Normal Inspection, Supple, Non-Tender, Full Range of Motion Respiratory/Chest: Other (freq hacking cough, some paroxysms, has a slight harsh end exp wheeze, no rales/rhonchi, no sputum, does get quite anxious) Cardiovascular: Regular Rate, Rhythm, No Edema, No Murmur GI/Abdominal: Soft, Non-Tender, No Distention Back Exam: Normal Inspection Extremities: Normal Inspection, Normal Range of Motion, Non-Tender Neurological: Alert, Oriented, CN II-XII Intact, Normal Cognition, No Motor/Sensory Deficits Psychiatric: Normal Affect, Normal Mood Skin: Warm, Dry, Intact, Normal Color, No Rash Lymphatic: No Adenopathy Course - Orders/Labs/Meds Orders: Active Orders 24 hr Category Date Time Status Chest 2V [CR] Stat Exams 01/29/21 23:09 Ordered C-REACTIVE PROTEIN [CHEM] Stat Lab 01/29/21 23:15 Received CBC WITH AUTO DIFF [HEME] Stat Lab 01/29/21 23:15 Received COMPREHENSIVE METABOLIC PN,CMP [CHEM] Stat Lab 01/29/21 23:15 Received - Re-Assessments/Exams Free Text/Narrative Re-Assessment/Exam: 01/30/21 00:27 pt on prednisone 40 mg/d (given rx for 20 mg 3 tabs/d x 3d, 2/d x 3d, 1/d x 3d) which accounts for wbc 21k differential however is normal no clinical or imaging evidence of pneumonia or bronchitis or infection (CxR 2v is neg on prelim ED read) inc'd TP suggests present of antibodies pt almost certainly has had COVID in past (asxs) and now has reaction of inflammatory response after 2nd COVID vax, which has been a common pattern in other pts who had the virus 01/30/21 00:32 PO 100% on RA Departure - Departure Time of Disposition: 00:16 Disposition: Home, Self-Care 01 Condition: Good Clinical Impression: Adverse reaction to COVID-19 vaccine - Discharge Information *PRESCRIPTION DRUG MONITORING PROGRAM REVIEWED*: Not Applicable *COPY OF PRESCRIPTION DRUG MONITORING REPORT IN PATIENT ONEL: Not Applicable Prescriptions: Benzonatate 200 mg PO TID #15 capsule Instructions: Multisystem Inflammatory Syndrome in Children Additional Instructions: You have a reaction to the COVID vaccine which sometimes occurs when someone has had COVID infection sometime in the past and did not know that they had it. There is inflammation in the lungs but no infection. It will take another week (in most cases) for the inflammation to subside. However, medications unfortunately do not help to decrease this type of inflammation. There is no advantage to continuing the prednisone, 2 antibiotics or albuterol inhaler. In order to partially suppress the cough, taking benzonatate 200 mg 1 capsule 3 times a day can help. Maintain fluids. For nausea, take ondansetron ODT 4 mg 1 tab under the tongue every 6 hours, which you have at home. Return to the Emergency Department if you should feel worse. - My Orders Last 24 Hours: My Active Orders 01/29/21 23:09 Chest 2V [CR] Stat 01/29/21 23:15 C-REACTIVE PROTEIN [CHEM] Stat CBC WITH AUTO DIFF [HEME] Stat COMPREHENSIVE METABOLIC PN,CMP [CHEM] Stat - Assessment/Plan Last 24 Hours: My Active Orders 01/29/21 23:09 Chest 2V [CR] Stat 01/29/21 23:15 C-REACTIVE PROTEIN [CHEM] Stat CBC WITH AUTO DIFF [HEME] Stat COMPREHENSIVE METABOLIC PN,CMP [CHEM] Stat
[2021-01-30] MEDS ORDERED: Benzonatate 100 MG Cap PO ONE (00:16)
[2021-01-30 22:07] VITALS: BP 136/92; PULSE 96
--- NOTE | 2021-01-31 11:29 | CR ---
INDICATION: Short of breath, cough. CHEST, TWO VIEWS: PA and lateral views of the chest were obtained 01/29/21 - no comparisons. Neurostimulators are noted extending from the lumbar back area into the lower middle thoracic spine area. The heart, mediastinum, and bony thorax are otherwise unremarkable. An active infiltrate or effusion was not identified. However, there is moderate bronchial wall cuffing at the lung bases, which may be on the basis of active peribronchial disease and should be correlated clinically. MTDD
== END 2021-01-30 00:40 | disposition home or self-care (01) ==
LOC: FB.ED 22:45
DX: R05 Cough (principal); T50.B95A Adverse effect of other viral vaccines, initial encounter; Z91.018 Allergy to other foods; Z91.048 Other nonmedicinal substance allergy status
CPT/HCPCS: 36415; 71046; 80053; 85025; 86140; 99283; A9270

== ENCOUNTER 2021-02-04 11:13 | Emergency (ER) | payer OTHER ==
[2021-02-04 11:34] VITALS: BP 132/81; PULSE 84
[2021-02-04] MEDS ORDERED: LORazepam 1 MG Tab PO ONE (11:52)
[2021-02-04] MEDS ORDERED: Albuterol/Ipratropium 3.0-0.5 MG/3 ML Neb Soln NEB ONE (11:52)
--- NOTE | 2021-02-04 15:02 | CR ---
INDICATION: Shortness of breath. CHEST ONE VIEW: AP upright portable view of the chest 02/04/21 was compared with 01/29/21 and revealed no definite interval change or acute process. Overlying EKG leads are again noted. Neurostimulator leads are again noted in the lower middle thoracic spine. Heart remains normal in size and shape. No active infiltrate or effusion was seen. IMPRESSION: Stable chest. No acute process. MTDD
--- NOTE | 2021-02-05 15:14 | EDM.PDOC ---
ED HPI GENERAL MEDICAL PROBLEM - General Chief Complaint: Respiratory Problem Stated Complaint: SOB Time Seen by Provider: 02/04/21 11:30 Source of Information: Reports: Patient History Limitations: Reports: No Limitations - History of Present Illness INITIAL COMMENTS - FREE TEXT/NARRATIVE: pt c/o non specific sx of intermittent Chest pains, SOB and restlessness for 3 weeks since her second does of covid and strongly believs it has something to do with it, pt denies any other associated sx, including fever chills or any any GI sx , was seen at clinic recently and placed on 10 day course of prednisone which she is about to finish also inhaler, she does not think she has asthma and does not think the inhaler is doing anything. - Related Data Allergies Allergy/AdvReac Type Severity Reaction Status Date / Time Bleach (Sodium Hypochlorite) Allergy Rash Verified 01/30/21 22:07 raspberry Allergy Itching, Verified 01/30/21 22:07 Throat Closes Home Meds: Home Meds Sertraline HCl 200 mg PO DAILY 10/11/16 [History] busPIRone [Buspar] 100 mg PO TID 10/11/16 [History] Celecoxib [CeleBREX] 200 mg PO BID 10/31/20 [History] Ciprofloxacin HCl [Cipro] 500 mg PO BID #20 tablet 10/31/20 [Rx] Hydrocodone/Acetaminophen [Hydrocodon-Acetaminophen 5-325] 1 - 2 tab PO Q4HR PRN #20 tablet 10/31/20 [Rx] Benzonatate 200 mg PO TID #15 capsule 01/30/21 [Rx] Past Medical History Respiratory History: Reports: Other (See Below) Other Respiratory History: States was told she has asthma since her second covid shot Genitourinary History: Reports: Other (See Below) Other Genitourinary History: History of UTI. Musculoskeletal History: Reports: Other (See Below) Other Musculoskeletal History: Chronic knee pain. Psychiatric History: Reports: Anxiety, Depression Dermatologic History: Reports: Other (See Below) Other Dermatologic History: Pilonidal cyst. Abscess to patrick area. - Past Surgical History Neurological Surgical History: Reports: Other (See Below) Other Neurological Surgeries/Procedures: Spinal stimulator. Musculoskeletal Surgical History: Reports: ORIF Other Musculoskeletal Surgeries/Procedures:: Right ankle fracture. 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 Denies: Wheezing, Pleuritic Chest Pain, Cough Cardiovascular: Reports: Chest Pain GI/Abdominal: Reports: No Symptoms Musculoskeletal: Reports: No Symptoms Skin: Reports: No Symptoms Neurological: Reports: No Symptoms ED EXAM, GENERAL - Physical Exam Exam: See Below Exam Limited By: No Limitations General Appearance: Alert, Anxious Eye Exam: Bilateral Eye: Normal Inspection Nose: Normal Inspection Throat/Mouth: Normal Inspection, Normal Oropharynx Head: Atraumatic, Normocephalic Neck: Normal Inspection, Supple, Non-Tender Respiratory/Chest: No Respiratory Distress, Lungs Clear, Normal Breath Sounds Cardiovascular: Normal Peripheral Pulses, Regular Rate, Rhythm GI/Abdominal: Normal Bowel Sounds, Soft Back Exam: Normal Inspection Extremities: Normal Inspection, Normal Range of Motion, Normal Capillary Refill. No: No Pedal Edema Neurological: Alert, Oriented, CN II-XII Intact, Normal Cognition, No Motor/Sensory Deficits Psychiatric: Anxious Skin Exam: Warm Course - Vital Signs Text/Narrative:: unremarkable test results were explained to pt, pt feels comfortable after ativan and duonebs. pt has nonspecific sx of dyspenia and chest pain that appear anxiety related and she is stable to follow on this issue with PCP as out-patient. Last Recorded V/S: Last Vital Signs Temp 36.7 C 02/04/21 11:15 Pulse 84 02/04/21 11:15 Resp 22 H 02/04/21 11:15 BP 132/81 02/04/21 11:15 Pulse Ox 99 02/04/21 12:05 - Orders/Labs/Meds Labs: Laboratory Tests 02/04/21 02/04/21 02/04/21 Range/Units 12:00 12:00 12:00 WBC 14.2 H (3.0-10.3) x10-3/uL RBC 4.76 (3.60-5.20) x10(6)uL Hgb 13.4 (11.4-15.5) g/dL Hct 40.9 (34.2-48.2) % MCV 86.0 (76.7-100.5) fL MCH 28.1 (23.9-33.9) pg MCHC 32.7 (31.9-34.8) g/dL RDW 13.8 (12.3-16.5) % Plt Count 420 (151-488) x10(3)uL MPV 8.0 (7.1-12.4) fL Add Manual Diff Yes Neutrophils % (Manual) 65 (46-82) % Lymphocytes % (Manual) 32 (13-37) % Monocytes % (Manual) 3 L (4-12) % D-Dimer, Quantitative 0.26 (0.0-0.59) mg/LFEU Sodium 140 (135-145) mmol/L Potassium 3.9 (3.5-5.3) mmol/L Chloride 103 (100-110) mmol/L Carbon Dioxide 22 (21-32) mmol/L BUN 9 (7-18) mg/dL Creatinine 0.9 (0.55-1.02) mg/dL Est Cr Clr Drug Dosing 91.01 mL/min Estimated GFR (MDRD) > 60 (>60) BUN/Creatinine Ratio 10.0 (9-20) Glucose 82 (80-116) mg/dL Calcium 7.9 L (8.6-10.2) mg/dL Total Bilirubin 0.3 (0.1-1.3) mg/dL AST 18 D (5-25) IU/L ALT 44 H D (12-36) U/L Alkaline Phosphatase 71 (56-112) IU/L Troponin I (4.0-60.3) pg/mL Total Protein 7.8 (6.0-8.0) g/dL Albumin 3.4 L (3.5-5.2) g/dL Globulin 4.4 g/dL Albumin/Globulin Ratio 0.8 TSH, Ultra Sensitive (0.36-3.74) IU/mL 02/04/21 Range/Units 12:00 WBC (3.0-10.3) x10-3/uL RBC (3.60-5.20) x10(6)uL Hgb (11.4-15.5) g/dL Hct (34.2-48.2) % MCV (76.7-100.5) fL MCH (23.9-33.9) pg MCHC (31.9-34.8) g/dL RDW (12.3-16.5) % Plt Count (151-488) x10(3)uL MPV (7.1-12.4) fL Add Manual Diff Neutrophils % (Manual) (46-82) % Lymphocytes % (Manual) (13-37) % Monocytes % (Manual) (4-12) % D-Dimer, Quantitative (0.0-0.59) mg/LFEU Sodium (135-145) mmol/L Potassium (3.5-5.3) mmol/L Chloride (100-110) mmol/L Carbon Dioxide (21-32) mmol/L BUN (7-18) mg/dL Creatinine (0.55-1.02) mg/dL Est Cr Clr Drug Dosing mL/min Estimated GFR (MDRD) (>60) BUN/Creatinine Ratio (9-20) Glucose (80-116) mg/dL Calcium (8.6-10.2) mg/dL Total Bilirubin (0.1-1.3) mg/dL AST (5-25) IU/L ALT (12-36) U/L Alkaline Phosphatase (56-112) IU/L Troponin I < 4.0 L (4.0-60.3) pg/mL Total Protein (6.0-8.0) g/dL Albumin (3.5-5.2) g/dL Globulin g/dL Albumin/Globulin Ratio TSH, Ultra Sensitive 2.42 (0.36-3.74) IU/mL Meds: Medications Discontinued Medications Generic Name Dose Route Start Last Admin Trade Name Freq PRN Reason Stop Dose Admin Albuterol/Ipratropium 3 ml 02/04/21 11:52 02/04/21 11:58 Albuterol/Ipratropium 3.0-0.5 Mg/3 Ml Neb Soln NEB 02/04/21 11:53 3 ml ONETIME ONE Administration Lorazepam 1 mg 02/04/21 11:52 02/04/21 11:57 Lorazepam 1 Mg Tab PO 02/04/21 11:53 1 mg ONETIME ONE Administration Departure - Departure Time of Disposition: 13:10 Disposition: Home, Self-Care 01 Clinical Impression: Anxiety disorder - Discharge Information Instructions: Shortness of Breath, Adult, [id number], [place] COVID-19 Vaccine for Recipients and Caregivers, Ipratropium; Albuterol Inhalation Solution Referrals: Hilaria Lau [facility]IK[facility] PRACTITIONER [Primary Care Provider] - Forms: ED Department Discharge Sepsis Event Note (ED) - Evaluation Sepsis Screening Result: No Definite Risk
== END 2021-02-04 13:55 | disposition home or self-care (01) ==
LOC: FB.ED 11:13
DX: F41.9 Anxiety disorder, unspecified (principal); Z72.0 Tobacco use; Z88.8 Allergy status to other drugs, medicaments and biological substances; Z91.018 Allergy to other foods
CPT/HCPCS: 36415; 71045; 80053; 84443; 84484; 85025; 85379; 93005; 94640; 99285; A9270; J7620-GY

== ENCOUNTER 2021-03-06 18:36 | Emergency (ER) | payer OTHER ==
[2021-03-06] MEDS ORDERED: Ondansetron 4 MG Tab.DIS PO ONE (18:37)
[2021-03-06] MEDS ORDERED: Sodium Chloride 0.9% 500 ML IV ONE (18:44)
[2021-03-06] MEDS ORDERED: Sodium Chloride 0.9% 1,000 ML IV SCH (18:45)
[2021-03-06 19:38] VITALS: BP 117/65; PULSE 79
--- NOTE | 2021-03-06 19:55 | EDM.PDOC ---
ED HPI GENERAL MEDICAL PROBLEM - General Chief Complaint: Gastrointestinal Problem Stated Complaint: ABDOMINAL PAIN Time Seen by Provider: 03/06/21 19:00 Source of Information: Reports: Patient History Limitations: Reports: No Limitations - History of Present Illness INITIAL COMMENTS - FREE TEXT/NARRATIVE: Patient presented to the ED because of N/V/D, body malaise, chills and dyspnea since she had her second pfizer covid vaccine sometime in December. She had several ER and Clinic visit and all work-up which includes, cbc, comp panel,cxr,chest ct are all normal except for an elevated white count and crp. abdomen Pain Score (Numeric/FACES): 4 - Related Data Allergies Allergy/AdvReac Type Severity Reaction Status Date / Time Bleach (Sodium Hypochlorite) Allergy Rash Verified 01/30/21 22:07 raspberry Allergy Itching, Verified 01/30/21 22:07 Throat Closes Home Meds: Home Meds busPIRone [Buspar] 100 mg PO TID 10/11/16 [History] Celecoxib [CeleBREX] 200 mg PO BID 10/31/20 [History] Ciprofloxacin HCl [Cipro] 500 mg PO BID #20 tablet 10/31/20 [Rx] Benzonatate 200 mg PO TID #15 capsule 01/30/21 [Rx] Metoclopramide HCl [Reglan] 10 mg PO Q8H PRN #30 tablet 03/06/21 [Rx] Ondansetron [Zofran ODT] 4 mg PO Q4H PRN #10 tab.dis 03/06/21 [Rx] Venlafaxine [Effexor] 75 mg PO DAILY 03/06/21 [History] Past Medical History Respiratory History: Reports: Other (See Below) Other Respiratory History: States was told she has asthma since her second covid shot Genitourinary History: Reports: Other (See Below) Other Genitourinary History: History of UTI. Musculoskeletal History: Reports: Other (See Below) Other Musculoskeletal History: Chronic knee pain. Psychiatric History: Reports: Anxiety, Depression Dermatologic History: Reports: Other (See Below) Other Dermatologic History: Pilonidal cyst. Abscess to patrick area. - Past Surgical History Neurological Surgical History: Reports: Other (See Below) Other Neurological Surgeries/Procedures: Spinal stimulator. Musculoskeletal Surgical History: Reports: ORIF Other Musculoskeletal Surgeries/Procedures:: Right ankle fracture. Social & Family History - Family History Family Medical History: No Pertinent Family History - Tobacco Use Tobacco Use Status *Q: Former Tobacco User Used Tobacco, but Quit: Yes Month/Year Tobacco Last Used: 2020 Tobacco Use Comment: denies smoking but pt smells cigarette. 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) ED ROS GENERAL - Review of Systems Review Of Systems: See Below Constitutional: Reports: Chills, Malaise, Weakness Respiratory: Reports: Shortness of Breath, Cough Cardiovascular: Reports: No Symptoms Endocrine: Reports: No Symptoms GI/Abdominal: Reports: Diarrhea, Nausea, Vomiting Musculoskeletal: Reports: No Symptoms Skin: Reports: No Symptoms Neurological: Reports: No Symptoms Psychiatric: Reports: No Symptoms ED EXAM, GENERAL - Physical Exam Exam: See Below Exam Limited By: No Limitations General Appearance: Alert, No Apparent Distress Ears: Normal External Exam, Normal Canal Nose: Normal Inspection, Normal Mucosa Throat/Mouth: Normal Inspection, Normal Lips, Normal Teeth Head: Atraumatic, Normocephalic Neck: Normal Inspection, Supple, Non-Tender, Full Range of Motion Respiratory/Chest: No Respiratory Distress, Lungs Clear, Normal Breath Sounds, No Accessory Muscle Use, Chest Non-Tender Cardiovascular: Normal Peripheral Pulses, Regular Rate, Rhythm, No Edema, No Gallop, No JVD, No Murmur GI/Abdominal: Soft, Non-Tender, No Organomegaly, Other (hyperactive BS) Back Exam: Normal Inspection, Full Range of Motion Extremities: Normal Inspection, Normal Range of Motion, Non-Tender Neurological: Alert, Oriented, CN II-XII Intact Course - Vital Signs Text/Narrative:: Lab result was reviewed and discussed with patient NS 1.5 L bolus Zofran 4 mg IV x1 Last Recorded V/S: Last Vital Signs Temp 36.1 C 03/06/21 18:50 Pulse 79 03/06/21 18:50 Resp 17 03/06/21 18:50 BP 117/65 03/06/21 18:50 Pulse Ox 97 03/06/21 18:50 - Orders/Labs/Meds Labs: Laboratory Tests 07/11/21 07/11/21 07/11/21 Range/Units 18:55 18:55 18:55 WBC 17.5 H (3.0-10.3) x10-3/uL RBC 4.92 (3.60-5.20) x10(6)uL Hgb 13.9 (11.4-15.5) g/dL Hct 42.6 (34.2-48.2) % MCV 86.6 (76.7-100.5) fL MCH 28.4 (23.9-33.9) pg MCHC 32.8 (31.9-34.8) g/dL RDW 13.6 (12.3-16.5) % Plt Count 416 (151-488) x10(3)uL MPV 7.7 (7.1-12.4) fL Add Manual Diff Yes Neutrophils % (Manual) 88 H (46-82) % Lymphocytes % (Manual) 9 L (13-37) % Monocytes % (Manual) 2 L (4-12) % Eosinophils % (Manual) 1 (0-5) % Sodium 144 (135-145) mmol/L Potassium 3.9 (3.5-5.3) mmol/L Chloride 104 (100-110) mmol/L Carbon Dioxide 26 (21-32) mmol/L BUN 9 (7-18) mg/dL Creatinine 1.0 (0.55-1.02) mg/dL Est Cr Clr Drug Dosing TNP Estimated GFR (MDRD) > 60 (>60) BUN/Creatinine Ratio 9.0 (9-20) Glucose 91 (80-116) mg/dL Calcium 9.1 (8.6-10.2) mg/dL Total Bilirubin 0.5 (0.1-1.3) mg/dL AST 24 D (5-25) IU/L ALT 34 D (12-36) U/L Alkaline Phosphatase 74 (56-112) IU/L C-Reactive Protein 1.4 H (0.5-0.9) mg/dL Total Protein 8.3 H (6.0-8.0) g/dL Albumin 3.8 (3.5-5.2) g/dL Globulin 4.5 g/dL Albumin/Globulin Ratio 0.8 Lipase 90 (73-393) U/L Meds: Medications Discontinued Medications Generic Name Dose Route Start Last Admin Trade Name Freq PRN Reason Stop Dose Admin Sodium Chloride 500 mls @ 999 mls/hr 03/06/21 18:44 03/06/21 18:55 Normal Saline IV 03/06/21 19:14 999 mls/hr .BOLUS ONE Administration Sodium Chloride 1,000 mls @ 150 mls/hr 03/06/21 18:45 Normal Saline IV ASDIRECTED [facility] Ondansetron HCl 16 mg 03/06/21 18:37 Ondansetron 4 Mg Tab.Dis PO 03/06/21 18:38 .STK-MED ONE Departure - Departure Time of Disposition: 19:55 Disposition: Home, Self-Care 01 Condition: Good Clinical Impression: Adverse reaction to COVID-19 vaccine - Discharge Information Prescriptions: Metoclopramide HCl [Reglan] 10 mg PO Q8H PRN #30 tablet PRN Reason: Nausea Ondansetron [Zofran ODT] 4 mg PO Q4H PRN #10 tab.dis PRN Reason: Nausea Instructions: Nausea and Vomiting, Adult, [id number], Dehydration, Elderly, [id number], Diarrhea, Adult, [id number] Referrals: PCP,None [Primary Care Provider] - Forms: ED Department Discharge Additional Instructions: Please read discharge instructions on adverse reaction to covid vaccine Drink at least 2 liters of water daily Zofran ODT every 4 hours as needed for nausea Reglan 10 mg every 8 hours as needed for nausea Imodium(over the counter) 2 tablets every 6 hours for diarrhea and cramping pain Tell your primary provider to recheck your wbc Sepsis Event Note (ED) - Evaluation Sepsis Screening Result: No Definite Risk
== END 2021-03-06 20:06 | disposition home or self-care (01) ==
LOC: FB.ED 18:36
DX: R11.2 Nausea with vomiting, unspecified (principal); T50.B95A Adverse effect of other viral vaccines, initial encounter; Z91.018 Allergy to other foods; Z91.048 Other nonmedicinal substance allergy status; Z87.891 Personal history of nicotine dependence
CPT/HCPCS: 36415; 80053; 83690; 85025; 86140; 99284; A9270; J7040

== ENCOUNTER 2022-03-17 21:42 | Emergency (ER) | payer BC, OTHER ==
[2022-03-17] MEDS ORDERED: Acetaminophen/HYDROcodone 325-5 MG Tab PO ONE (21:43)
[2022-03-17] MEDS ORDERED: Sodium Chloride 0.9% 10 ML Syringe FLUSH PRN (22:03)
[2022-03-17] MEDS ORDERED: HYDROmorphone 2 MG/ML SDV IVPUSH ONE ×2 (22:04→23:40)
[2022-03-17 22:14] LABS: ESTIMATED GFR 92 mL/min (>60)
[2022-03-17] MEDS ORDERED: Iopamidol 755 Mg/ML 100 ML Bottle IV ONE (22:42)
[2022-03-17] MEDS ORDERED: NS + KCl 20mEq/L 1,000 ML IV SCH (22:45)
[2022-03-17] MEDS ORDERED: Ondansetron 4 MG/2 ML SDV IVPUSH ONE (23:17)
[2022-03-17] MEDS ORDERED: LORazepam 2 MG/ML SDV IVPUSH ONE (23:41)
[2022-03-17] MEDS ORDERED: Ketorolac 30 MG/ML SDV IVPUSH ONE (23:41)
[2022-03-18 03:21] VITALS: BP 135/71; PULSE 88
== END 2022-03-18 01:25 | disposition home or self-care (01) ==
LOC: FB.ED 21:42
DX: R10.12 Left upper quadrant pain (principal); Z91.018 Allergy to other foods; Z91.048 Other nonmedicinal substance allergy status; Z79.899 Other long term (current) drug therapy
CPT/HCPCS: 36415; 71046; 74177; 80048; 81001; 84484; 85027; 85379; 86140; 93005; 96365; 96366; 96375; 96376; 99285; A9270; J1170; J1885; J2060; J2405; J3480; J3490; Q9967; 93010; 99283

== ENCOUNTER 2022-03-18 11:31 | Emergency (ER) | payer BC ==
[2022-03-18 11:45] VITALS: BP 133/65; PULSE 93
[2022-03-18 11:55] LABS: ESTIMATED GFR 124 mL/min (>60)
[2022-03-18] MEDS ORDERED: Ketorolac 30 MG/ML SDV IM ONE (12:33)
== END 2022-03-18 13:40 | disposition home or self-care (01) ==
LOC: FB.ED 11:31
DX: R10.12 Left upper quadrant pain (principal); K21.9 Gastro-esophageal reflux disease without esophagitis; E66.9 Obesity, unspecified; Z91.048 Other nonmedicinal substance allergy status; Z88.8 Allergy status to other drugs, medicaments and biological substances; Z68.34 Body mass index [BMI] 34.0-34.9, adult
CPT/HCPCS: 36415; 80053; 84484; 85027; 86140; 96372; 99284; J1885; 99281

== ENCOUNTER 2022-09-26 08:37 | Emergency (ER) | payer BC, OTHER ==
[2022-09-26] MEDS: Ketorolac 30 MG/ML SDV IM ONE (09:42)
[2022-09-26 11:13] VITALS: BP 126/77; PULSE 99
== END 2022-09-26 10:10 | disposition home or self-care (01) ==
LOC: FB.ED 08:37
DX: G90.522 Complex regional pain syndrome I of left lower limb (principal); K21.9 Gastro-esophageal reflux disease without esophagitis; E66.9 Obesity, unspecified; Z68.36 Body mass index [BMI] 36.0-36.9, adult; Z87.891 Personal history of nicotine dependence; Z91.018 Allergy to other foods; Z88.7 Allergy status to serum and vaccine; Z88.8 Allergy status to other drugs, medicaments and biological substances; Z79.899 Other long term (current) drug therapy
CPT/HCPCS: 96372; 99283; J1885

== ENCOUNTER 2022-11-19 17:07 | Emergency (ER) | payer OTHER ==
[2022-11-19 17:33] VITALS: BP 145/85; PULSE 128
[2022-11-19 18:19] LABS: ESTIMATED GFR 105 mL/min (>60)
[2022-11-19] MEDS ORDERED: Sodium Chloride 0.9% 1,000 ML IV ONE (18:29)
[2022-11-19] MEDS ORDERED: Ondansetron 4 MG/2 ML SDV IVPUSH ONE (18:29)
[2022-11-19] MEDS ORDERED: Sodium Chloride 0.9% 10 ML Syringe FLUSH PRN (18:29)
== END 2022-11-19 20:50 | disposition home or self-care (01) ==
LOC: FB.ED 17:07
DX: R10.13 Epigastric pain (principal); E86.0 Dehydration; K21.9 Gastro-esophageal reflux disease without esophagitis; E66.9 Obesity, unspecified; Z68.32 Body mass index [BMI] 32.0-32.9, adult; Z88.8 Allergy status to other drugs, medicaments and biological substances; Z88.7 Allergy status to serum and vaccine; Z91.018 Allergy to other foods; Z79.899 Other long term (current) drug therapy
CPT/HCPCS: 36415; 80053; 83690; 83735; 85025; 86140; 96361; 96374; 99284; J2405; J3490; J7030